=== PATIENT | male | born 1980 | race Caucasian/White ===

== ENCOUNTER 2021-01-04 13:08 | Emergency (ER) | payer MEDICAID, SELFPAY ==
[2021-01-04 13:11] VITALS: BP 156/111; PULSE 68; RESP 20; TEMP 36.9; O2SAT 99; BMI 37.5
[2021-01-04 13:15] VITALS: O2SAT 99
--- NOTE | 2021-01-04 14:15 | RAD_ITS ---
STUDY: X-RAY - RIGHT WRIST REASON FOR EXAM: Male, 40 years old. Injury/Pain TECHNIQUE: 3 view(s) of the wrist were obtained. COMPARISON: None. FINDINGS: Normal visualized distal radius and ulna. Normal radiocarpal articulation. Normal distal radioulnar articulation. Normal carpal bones. Normal carpal articulations. Normal carpometacarpal articulation of the thumb. Normal second through fifth carpometacarpal articulations. Normal visualized metacarpal bones. The soft tissue structures are unremarkable. RAD/Wrist min 3 Views IMPRESSION: Normal x-ray examination of the wrist. Electronically Signed: Brenden Echols MD at 14:51 EDT , Service support ,
[2021-01-04] MEDS: Lidocaine 1% (20 ml mdv) 20 ML Vial INFILT (14:49)
[2021-01-04] MEDS: BACITRACIN 15 GM Tube 1 APPLIC TOPICAL (14:50)
[2021-01-04 15:44] VITALS: RESP 16
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
[2021-01-04 16:35] VITALS: BP 145/99; PULSE 98; RESP 18; O2SAT 99
== END 2021-01-04 16:37 | disposition home or self-care (01) ==
PROVIDERS: Emergency Provider Emergency Medicine
DX: S61.511A Laceration without foreign body of right wrist, initial encounter (principal); F17.210 Nicotine dependence, cigarettes, uncomplicated; V68.0XXA Driver of heavy transport vehicle injured in noncollision transport accident in nontraffic accident, initial encounter
CPT/HCPCS: 12002; 73110; 99285